=== PATIENT | female | born 1950 | race Caucasian/White ===

== ENCOUNTER 2018-05-12 17:31 | Emergency (ER) | payer MEDICARE, OTHER ==
[2018-05-12 17:38] VITALS: TEMP 97.8
[2018-05-12 17:39] VITALS: BMI 19.5
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
[2018-05-12 20:44] VITALS: BP 142/79; PULSE 79; RESP 19; O2SAT 99
== END 2018-05-12 20:44 | disposition home or self-care (01) ==
LOC: H.ER 17:31
DX: F03.90 Unspecified dementia, unspecified severity, without behavioral disturbance, psychotic disturbance, mood disturbance, and anxiety (principal); E11.9 Type 2 diabetes mellitus without complications; E78.00 Pure hypercholesterolemia, unspecified; F41.9 Anxiety disorder, unspecified; I10 Essential (primary) hypertension

== ENCOUNTER 2018-06-14 17:00 | Observation (INO) | payer MEDICARE, OTHER ==
[2018-06-14 17:00] VITALS: BMI 19.5
--- NOTE | 2018-06-14 18:22 | RAD ---
Date of service: 06/14/2018 HISTORY: Chest pressure COMPARISON: No prior. FINDINGS: LUNGS: No active pulmonary disease. PLEURA: No significant pleural effusion identified, no pneumothorax apparent. CARDIOVASCULAR: No radiographic findings to suggest acute or significant cardiovascular disease. OSSEOUS STRUCTURES: No significant abnormalities. VISUALIZED UPPER ABDOMEN: Normal. OTHER FINDINGS: None. IMPRESSION: No active disease.
[2018-06-14 18:29] LABS: BASO % 0.3 % (0.0-2.0); EOS % 0.2 % (0.0-4.0); LYMPH # 1.7 K/uL (1.0-4.3); LYMPH % 24.2 % (20.0-40.0); MEAN CELL VOLUME 94.3 fl (81.0-99.0); MEAN CORPUSCULAR HGB CONC 32.8 g/dL (33.0-37.0); MEAN PLATELET VOLUME 9.3 fl (7.2-11.7); MONO # 0.8 K/uL (0.0-0.8); MONO % 11.5 % (0.0-10.0); NEUT # 4.6 K/uL (1.8-7.0); NEUT % 63.8 % (50.0-75.0); RBC 3.87 Mil/uL (3.80-5.20); RED CELL DISTRIBUTION WIDTH 13.5 % (11.5-14.5); WHITE BLOOD COUNT 7.1 K/uL (4.8-10.8)
[2018-06-14 18:34] LABS: PROTHROMBIN TIME 11.3 Seconds (9.8-13.1)
[2018-06-14 18:37] LABS: PARTIAL THROMBOPLASTIN TIME 30.2 Seconds (25.6-37.1)
[2018-06-14 18:55] LABS: ALBUMIN 3.8 g/dL (3.5-5.0); ALT/SGPT 26 U/L (9-52); AST/SGOT 34 U/L (14-36); BLOOD UREA NITROGEN 17 mg/dl (7-17); CALCIUM 9.9 mg/dL (8.4-10.2); GFR NON-AFRICAN AMERICAN 50
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
[2018-06-14] MEDS ORDERED: Magnesium Hydroxide Susp 30 ml UD PO PRN ×2 (22:17→22:48)
[2018-06-14] MEDS ORDERED: Bismuth Subsalicylate 262 mg Chew Tab PO PRN (22:17)
[2018-06-14] MEDS ORDERED: Bismuth Subsalicylate 262 mg/15 ml Sus (240 ml) PO PRN (22:48)
[2018-06-15 04:35] LABS: SQUAMOUS EPITHIAL 6 /hpf (0-5); URINE BACTERIA OCC (<OCC); URINE BILIRUBIN NEGATIVE (NEGATIVE); URINE BLOOD SMALL (NEGATIVE); URINE CLARITY TURBID (Clear); URINE COLOR AMBER (YELLOW); URINE GLUCOSE (UA) NEG (Normal); URINE LEUKOCYTE ESTERASE LARGE Leu/uL (Negative); URINE PROTEIN 100 mg/dL (NEGATIVE); URINE UROBILINOGEN 0.2-1.0 mg/dL (0.2-1.0)
[2018-06-15] MEDS ORDERED: Pneumococcal 23-Valent Vaccine IM ONE (06:00)
--- NOTE | 2018-06-15 06:27 | CARD ---
APPROVED REPORT Date of service: 06/14/2018 EKG Measurement Heart [id number] <Conclusion> Normal sinus rhythm Normal ECG
[2018-06-15] MEDS ORDERED: Saccharomyces Boulardi 250 mg Cap PO SCH (09:00)
[2018-06-15] MEDS ORDERED: Latanoprost 0.005% Opht SOUTION OU SCH (09:00)
[2018-06-15] MEDS ORDERED: Metoprolol Succinate 25 mg XL Tab PO SCH (09:00)
--- NOTE | 2018-06-15 15:40 | CP.PCM.HP ---
History of Present Illness - History of Present Illness History of Present Illness: pt seen and examined with Dr. Gliliam 68 yo F with pmhx of HTN, dementia presented to ED by [facility] for aggression. Pt also reported chest pain. Pt reports pain at L axillary region. Denies dysuria, increased urinary frequency or history of UTI. pmd: Dr. Ovalle fmhx: unknown NKDA Present on Admission - Present on Admission Any Indicators Present on Admission: No Urinary Catheter: No Review of Systems - Constitutional Constitutional: As Per HPI - Cardiovascular Cardiovascular: absent: Chest Pain Additional comments: pt reported L axillary pain - Respiratory Respiratory: absent: Cough, Dyspnea - Gastrointestinal Gastrointestinal: absent: Abdominal Pain - Genitourinary Genitourinary: absent: Dysuria, Hematuria, Urinary Frequency, Freq UTI - Psychiatric Psychiatric: Anxiety Past Patient History - Infectious Disease Hx of Infectious Diseases: None - Past Medical History & Family History Past Medical History?: Yes - Past Social History Smoking Status: Never Smoked Alcohol: None Drugs: Denies Home Situation {Lives}: Assisted - CARDIAC Hx Cardiac Disorders: Yes Hx Hypercholesterolemia: Yes Hx Hypertension: Yes ( PER SON) - PULMONARY Hx Respiratory Disorders: No Hx Tuberculosis: No - NEUROLOGICAL Hx Neurological Disorder: Yes Hx Dementia: Yes Hx Seizures: Yes ( PER SON) - HEENT Hx HEENT Problems: No - RENAL Hx Chronic Kidney Disease: No - ENDOCRINE/METABOLIC Hx Endocrine Disorders: Yes Hx Diabetes Mellitus Type 2: Yes - HEMATOLOGICAL/ONCOLOGICAL Hx Blood Disorders: No Hx Human Immunodeficiency Virus (HIV): No - INTEGUMENTARY Hx Dermatological Problems: No - MUSCULOSKELETAL/RHEUMATOLOGICAL Hx Musculoskeletal Disorders: Yes Hx Arthritis: Yes (BACK, KNEE AND ANKLE PAIN R>L) Hx Falls: No Hx Fractures: Yes - GASTROINTESTINAL Hx Gastrointestinal Disorders: Yes Hx Gastroesophageal Reflux: Yes - GENITOURINARY/GYNECOLOGICAL Hx Genitourinary Disorders: Yes Hx Incontinence: Yes - PSYCHIATRIC Hx Psychophysiologic Disorder: Yes Hx Anxiety: Yes - SURGICAL HISTORY Hx Surgeries: Yes Hx Tubal Ligation: Yes - ANESTHESIA Hx Anesthesia: Yes Hx Anesthesia Reactions: No Hx Malignant Hyperthermia: No Has any member of the family had a problem w/ anesthesia?: No Meds Home Medications: Home Medication List Medication Instructions Recorded Confirmed Type Bismuth Subsalicylate 262 mg PO Q4 PRN dose 06/15/18 Rx [Pepto-Bismol] Magnesium Hydroxide [Milk Of 30 ml PO DAILY PRN udc 06/15/18 Rx Magnesia] Allergies/Adverse Reactions: Allergies Allergy/AdvReac Type Severity Reaction Status Date / Time No Known Allergies Allergy Verified 06/14/18 17:08 Physical Exam - Constitutional Appears: Non-toxic, No Acute Distress - Eye Exam Eye Exam: EOMI - Respiratory Exam Respiratory Exam: Clear to Auscultation Bilateral, NORMAL BREATHING PATTERN. absent: Wheezes - Cardiovascular Exam Cardiovascular Exam: +S1, +S2 - GI/Abdominal Exam GI & Abdominal Exam: Normal Bowel Sounds, Soft. absent: Tenderness - Extremities Exam Extremities exam: Negative for: calf tenderness - Neurological Exam Neurological exam: Alert - Psychiatric Exam Psychiatric exam: Normal Affect, Normal Mood Results - Vital Signs Recent Vital Signs: Last Vital Signs Temp 97.6 F 06/15/18 12:33 Pulse 85 06/15/18 12:33 Resp 20 06/15/18 12:33 BP 156/76 H 06/15/18 12:33 Pulse Ox 99 06/15/18 12:33 - Labs Result Diagrams: 06/14/18 18:24 06/14/18 18:24 Labs: Laboratory Results - last 24 hr 06/14/18 06/14/18 06/14/18 18:24 18:24 18:24 WBC 7.1 RBC 3.87 Hgb 12.0 Hct 36.5 MCV 94.3 MCH 31.0 MCHC 32.8 L RDW 13.5 Plt Count 137 MPV 9.3 Neut % (Auto) 63.8 Lymph % (Auto) 24.2 Webb % (Auto) 11.5 H Eos % (Auto) 0.2 Baso % (Auto) 0.3 Neut # (Auto) 4.6 Lymph # (Auto) 1.7 Webb # (Auto) 0.8 Eos # (Auto) 0.0 Baso # (Auto) 0.0 PT 11.3 INR 1.0 APTT 30.2 Sodium 143 Potassium 4.1 Chloride 109 H Carbon Dioxide 31 H Anion Gap 7 L BUN 17 Creatinine 1.1 Est GFR ( Amer) 60 Est GFR (Non-Af Amer) 50 POC Glucose (mg/dL) Random Glucose 100 Calcium 9.9 Total Bilirubin 0.3 AST 34 ALT 26 Alkaline Phosphatase 58 Troponin I < 0.0120 Total Protein 7.5 Albumin 3.8 Globulin 3.8 Albumin/Globulin Ratio 1.0 Urine Color Urine Clarity Urine pH Ur Specific [place] Urine Protein Urine Glucose (UA) Urine Ketones Urine Blood Urine Nitrate Urine Bilirubin Urine Urobilinogen Ur Leukocyte Esterase Urine RBC (Auto) Urine Microscopic WBC Ur Squamous Epith Cells Urine Bacteria 06/15/18 06/15/18 06/15/18 04:15 05:20 05:21 WBC RBC Hgb Hct MCV MCH MCHC RDW Plt Count MPV Neut % (Auto) Lymph % (Auto) Webb % (Auto) Eos % (Auto) Baso % (Auto) Neut # (Auto) Lymph # (Auto) Webb # (Auto) Eos # (Auto) Baso # (Auto) PT INR APTT Sodium Potassium Chloride Carbon Dioxide Anion Gap BUN Creatinine Est GFR ( Amer) Est GFR (Non-Af Amer) POC Glucose (mg/dL) 93 Random Glucose Calcium Total Bilirubin AST ALT Alkaline Phosphatase Troponin I < 0.0120 Total Protein Albumin Globulin Albumin/Globulin Ratio Urine Color Imelda Urine Clarity Turbid Urine pH 6.0 Ur Specific [place] 1.025 Urine Protein 100 Urine Glucose (UA) Neg Urine Ketones Trace Urine Blood Small Urine Nitrate Positive H Urine Bilirubin Negative Urine Urobilinogen 0.2-1.0 Ur Leukocyte Esterase Large Urine RBC (Auto) 25 H Urine Microscopic WBC 1554 H Ur Squamous Epith Cells 6 H Urine Bacteria Occ H 06/15/18 06/15/18 11:35 12:17 WBC RBC Hgb Hct MCV MCH MCHC RDW Plt Count MPV Neut % (Auto) Lymph % (Auto) Webb % (Auto) Eos % (Auto) Baso % (Auto) Neut # (Auto) Lymph # (Auto) Webb # (Auto) Eos # (Auto) Baso # (Auto) PT INR APTT Sodium Potassium Chloride Carbon Dioxide Anion Gap BUN Creatinine Est GFR ( Amer) Est GFR (Non-Af Amer) POC Glucose (mg/dL) 181 H Random Glucose Calcium Total Bilirubin AST ALT Alkaline Phosphatase Troponin I < 0.0120 Total Protein Albumin Globulin Albumin/Globulin Ratio Urine Color Urine Clarity Urine pH Ur Specific [place] Urine Protein Urine Glucose (UA) Urine Ketones Urine Blood Urine Nitrate Urine Bilirubin Urine Urobilinogen Ur Leukocyte Esterase Urine RBC (Auto) Urine Microscopic WBC Ur Squamous Epith Cells Urine Bacteria Assessment & Plan (1) Asymptomatic bacteriuria Status: Acute (2) Agitation Status: Acute - Assessment and Plan (Free Text) Plan: 68 yo F with pmhx of HTN, dementia r/o acs Labs reviewed Pain is localized to axillary region not chest wall. Asymptomatic bacturemia. Continue treatment/care plan as ordered Case Dw Dr. Mane talley md pgy2
[2018-06-15 15:44] VITALS: BP 145/89; PULSE 95; RESP 17; TEMP 99.1; O2SAT 100
== END 2018-06-15 16:00 ==
LOC: H.ER 17:00 → H.ERHOLD 20:55 → H.TEL 22:14
PROVIDERS: ADMIT Family Medicine; ATTEND Family Medicine
DX: R82.71 Bacteriuria (principal); I10 Essential (primary) hypertension; E11.9 Type 2 diabetes mellitus without complications; F03.91 Unspecified dementia, unspecified severity, with behavioral disturbance; F41.9 Anxiety disorder, unspecified; M19.90 Unspecified osteoarthritis, unspecified site; E78.00 Pure hypercholesterolemia, unspecified; K21.9 Gastro-esophageal reflux disease without esophagitis; R45.1 Restlessness and agitation; Z23 Encounter for immunization
CPT/HCPCS: 36415; 71045; 80053; 81003; 82948; 84484; 85025; 85610; 85730; 87086; 90732; 93005; 99283; G0009; G0378; J0696; J2060

== ENCOUNTER 2018-06-19 14:30 | Emergency (ER) | payer MEDICARE, OTHER ==
[2018-06-19 14:30] VITALS: BMI 19.5
--- NOTE | 2018-06-19 15:07 | ED PDOC ---
HPI: Psych/Substance Abuse Time Seen by Provider: 06/19/18 14:44 Chief Complaint (Nursing): Psychiatric Evaluation Chief Complaint (Provider): Psychiatric Evaluation ED Caveat: Dementia History Per: Patient Additional Complaint(s): 68 year old female presents [facility] the [facility] for psychiatric evaluation secondary to aggressive behavior. PMD: none provided Past Medical History Reviewed: Historical Data, Nursing Documentation, Vital Signs Vital Signs: Last Vital Signs Temp 98 F 06/19/18 14:33 Pulse 75 06/19/18 14:33 Resp 18 06/19/18 14:33 BP 138/82 06/19/18 14:33 Pulse Ox 99 06/19/18 14:33 - Medical History PMH: Anxiety, Arthritis (BACK, KNEE AND ANKLE PAIN R>L), Dementia, Fractures, HTN ( PER SON), Hypercholesterolemia, Hyperlipidemia, Seizures ( PER SON) Denies: Diabetes, Hepatitis, HIV, Chronic Kidney Disease, Sexually Transmitted Disease - Surgical History Surgical History: No Surg Hx - Family History Family History: States: Unknown Family Hx - Immunization History Hx Tetanus Toxoid Vaccination: No Hx Influenza Vaccination: No Hx Pneumococcal Vaccination: No - Home Medications Home Medications: Ambulatory Orders Medication Instructions Recorded ALPRAZolam [Xanax] 1 mg PO Q8H 12/23/17 Atorvastatin [Lipitor] 20 mg PO HS tab 12/23/17 Ferrous Sulfate [Feosol] 324 mg PO BID 12/23/17 Losartan [Cozaar] 50 mg PO DAILY tab 12/23/17 Metoprolol Succinate XL [Toprol XL] 25 mg PO DAILY tab 12/23/17 Memantine [Namenda] 10 mg PO BID tab 12/25/17 Valproic Acid [Depakene] 250 mg PO TID 06/12/18 Bismuth Subsalicylate [Pepto 15 ml PO PRN PRN 06/14/18 Bismol] Insulin Regular, Human [Novolin R] See Protocol SC PRN PRN MDD for 06/14/18 diabetes Latanoprost/Pf [Latanoprost 0.005% 1 drop EACHEYE DAILY 06/14/18 Eye Drop] Magnesium Hydroxide [Milk of 400 mg PO PRN PRN 06/14/18 Magnesia] Saccharomyces Boulardi [Florastor] 1 cap PO DAILY 06/14/18 Bismuth Subsalicylate 262 mg PO Q4 PRN dose 06/15/18 [Pepto-Bismol] Magnesium Hydroxide [Milk Of 30 ml PO DAILY PRN udc 06/15/18 Magnesia] - Allergies Allergies/Adverse Reactions: Allergies Allergy/AdvReac Type Severity Reaction Status Date / Time No Known Allergies Allergy Verified 06/19/18 14:33 Review of Systems ROS Statement: Except As Marked, All Systems Reviewed And Found Negative Psych: Positive for: Other (Aggressive behavior) Physical Exam - Reviewed Nursing Documentation Reviewed: Yes Vital Signs Reviewed: Yes - Physical Exam Appears: Positive for: Non-toxic, No Acute Distress (Calm, cooperative) Head Exam: Positive for: ATRAUMATIC, NORMOCEPHALIC Skin: Positive for: Normal Color, Warm, Dry Eye Exam: Positive for: Normal appearance Neck: Positive for: Normal, Painless ROM Cardiovascular/Chest: Positive for: Regular Rate, Rhythm. Negative for: Murmur Respiratory: Positive for: Normal Breath Sounds. Negative for: Wheezing, Respiratory Distress Neurologic/Psych: Positive for: Oriented (x1) - ECG O2 Sat by Pulse Oximetry: 99 (RA) Pulse Ox Interpretation: Normal Medical Decision Making Medical Decision Making: Initial Impression: Psychiatric evaluation Initial Plan: --Crisis evaluation 16:37 As per workers compensation administrator, patient will be observed for four hours and if without incident, patient will be sent back to the prison with diagnosis of dementia with behavior disturbance. Scribe Attestation: Documented by Norman Pacheco acting as a scribe for Cyn Blackburn MD. Provider Scribe Attestation: All medical record entries made by the Scribe were at my direction and personally dictated by me. I have reviewed the chart and agree that the record accurately reflects my personal performance of the history, physical exam, medical decision making, and the department course for this patient. I have also personally directed, reviewed, and agree with the discharge instructions and disposition. Disposition - Clinical Impression Clinical Impression: Dementia with behavioral disturbance - Disposition Disposition: Other Institution Disposition Time: 18:45 Condition: STABLE Instructions: Dementia (Including Alzheimer Disease) Forms: [employer] (Peruvian)
[2018-06-19 21:07] VITALS: RESP 18
[2018-06-19 22:58] VITALS: BP 131/80; PULSE 80; TEMP 97.9; O2SAT 97
== END 2018-06-19 22:45 | disposition home or self-care (01) ==
LOC: H.ER 14:30
DX: F03.91 Unspecified dementia, unspecified severity, with behavioral disturbance (principal); E78.00 Pure hypercholesterolemia, unspecified; F41.9 Anxiety disorder, unspecified; I10 Essential (primary) hypertension